=== PATIENT | female | born 1930 | race Hispanic/Latino ===

== ENCOUNTER 2021-03-10 16:48 | Emergency (ER) | payer MEDICARE ==
[~2021-03-10] VITALS: Ht 152.4 cm; Wt 63.5 kg
[2021-03-10 17:24] LABS: APPEARANCE,URINE Cloudy (CLEAR); BILIRUBIN,URINE Negative (NEGATIVE); COLOR,URINE Yellow (YELLOW); GLUCOSE, URINE (UA) Negative (NEGATIVE); KETONES,URINE Negative (NEGATIVE); LEUKOCYTE ESTERASE ,URINE Large (NEGATIVE); NITRATE,URINE Negative (NEGATIVE); OCCULT BLOOD,URINE Moderate (NEGATIVE); PH,URINE 6.5 (5.0-8.0); PROTEIN,URINE Negative (NEGATIVE); UROBILINOGEN,URINE 0.2 mg/dL (0.2-1.0)
[2021-03-10] MEDS: PHENAZOPYRIDINE HCL 200 MG TABLET PO ONE (17:26)
[2021-03-10] MEDS: CEFTRIAXONE 1G VIAL IM ONE (17:29)
[2021-03-10 17:50] LABS: BACTERIA,URINE Few /HPF (None Seen); MUCUS,URINE Few LPF (None Seen); SQUAMOUS EPITHELIAL CELL,UR 0-2 /HPF (0-2)
[2021-03-10] MEDS ORDERED: CEPH500B PO (18:07)
[2021-03-10] MEDS ORDERED: PHEN-847 PO (18:07)
[2021-03-10] MEDS: NIFEDIPINE 10 MG CAP PO SCH (19:06)
[2021-03-10 19:57] VITALS: BP 127/78
== END 2021-03-10 20:05 | disposition home or self-care (01) ==
LOC: EDH 16:48
DX: N39.0 Urinary tract infection, site not specified (principal); E11.9 Type 2 diabetes mellitus without complications; E78.00 Pure hypercholesterolemia, unspecified; I11.9 Hypertensive heart disease without heart failure; Z98.890 Other specified postprocedural states; Z79.899 Other long term (current) drug therapy
CPT/HCPCS: 81001; 87088; 96372; 99283; J0696